=== PATIENT | female | born 1955 | race Caucasian/White ===

== ENCOUNTER 2017-09-29 09:37 | Emergency (ER) | payer BC ==
--- NOTE | 2017-09-29 10:06 | UC ---
Complaint Female HPI - HPI Summary HPI Summary: 62 year old female with cough . HAS BEEN COUGHING SINCE SATURDAY. SHE JUST DID NOT FEEL WELL AND WENT HOME FROM WORK. LAST NIGHT SHE WAS WHEEZING AND COULD NOT CATCH HER BREATH UNLESS SHE SAT UP. SHE SAID IT FELT LIKE ASTHMA ALTHOUGH SHE DOES NOT HAVE A HISTORY OF ASTHMA. [facility] IN THE BEGINNING OF AUGUST FOR 3 DAYS. AT THAT TIME THEY TESTED HER FOR FLU BUT IT WAS NEGATIVE AND SHE WAS TOLD THAT SHE HAD A URI. SHE DID GET BETTER AFTER HER VISIT IN THE HOSPITAL. SHE HAS HAD A TICKLY COUGH SINCE THEN. SHE IS CONCERNED THAT IT MAY BE A SIDE EFFECT OF ONE OF HER MEDICATIONS. SHE HAS BEEN ON LISINOPRIL/HCTZ FOR ABOUT 2 YEARS. THEY JUST STARTED HER ON AMIODARONE, ELIQUIS, AND METOPROLOL. SHE DID CALL HER CONSTRUCTION MANAGEMENT INSTRUCTOR DR BAIG IN [place] TO SEE IF IT WAS A MEDICATION SIDE EFFECT. SHE IS SUPPOSED TO CHECK BACK IN WITH HIM TOMORROW. BUT AFTER LAST NIGHT SHE FELT SO SICK THAT SHE IS WORRIED THAT SHE WILL GO BACK IN TO [facility] AND THE HOSPITAL. SHE ALSO IS UNSURE OF WHAT SHE CAN TAKE TO HELP WITH HER SYMPTOMS. SHE DOES NOT HAVE A FEVER. Cough worsened last night and change in cough she thinks. she feels her heart rate is normal and stable. no body aches. 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 Onset/Duration: Gradual Onset Timing: Constant Severity Initially: Mild Aggravating Factor(s): Coughing - History Of Current Complaint Stated Complaint: COUGH, WHEEZING - Allergies/Home Medications Allergies/Adverse Reactions: Allergies Allergy/AdvReac Type Severity Reaction Status Date / Time No Known Allergies Allergy Verified 09/29/17 10:17 Home Medications: Home Medications Amiodarone TAB* [Cordarone Tab*] 200 mg PO DAILY 09/29/17 [History Confirmed 11/13] Apixaban* [Eliquis*] 5 mg PO BID 09/29/17 [History Confirmed 09/29/17] Lisinopril/HCTZ 10/12.5(NF) [Zestoretic 10/12.5(NF)] 1 tab PO DAILY 09/29/17 [ History Confirmed 09/29/17] Metoprolol Tartrate TAB* [Lopressor TAB*] 25 mg PO BID 09/29/17 [History Confirmed 09/29/17] PMH/Surg Hx/FS Hx/Imm Hx Previously Healthy: Yes Cardiovascular History: Atrial Fibrillation - Family History Known Family History: Positive: None - Social History Occupation: Employed Full-time Lives: With Family Review of Systems Constitutional: Fatigue ENT: Nasal Discharge Respiratory: Cough Is Patient Immunocompromised?: No All Other Systems Reviewed And Are Negative: Yes Physical Exam Triage Information Reviewed: Yes Appearance: Well-Appearing, No Pain Distress, Well-Nourished Vital Signs: Initial Vital Signs Temp 99.8 F 09/29/17 10:02 Pulse 62 09/29/17 10:02 Resp 14 09/29/17 10:02 BP 123/77 09/29/17 10:02 Pulse Ox 97 09/29/17 10:02 Vital Signs Reviewed: Yes Eye Exam: Normal ENT Exam: Normal Dental Exam: Normal Neck exam: Normal Neck: Positive: 1 Respiratory Exam: Normal Respiratory: Positive: Chest non-tender, Decreased breath sounds - RLL, Wheezing - RLL mild Cardiovascular Exam: Normal Musculoskeletal Exam: Normal Neurological Exam: Normal Psychological Exam: Normal Skin Exam: Normal Re-Evaluation - Re-Evaluation First Eval Change: Improved - feels the med has reduced her chest tightness and no more cough and requesting med for home. xray neg. treat as viral at this time. she will go to PCP if not improved. Complaint Female Dx - Course Course Of Treatment: IMPRESSION: NO ACTIVE DISEASE per rads. she declined EKG. discussed abx but I dont think necessary and may interact with her meds and she desires to monitor at this time as well and avoid antibiotics and go to PCP if not better - Differential Dx/Diagnosis Provider Diagnoses: URI Discharge - Discharge Plan Condition: Good Disposition: HOME Prescriptions: Albuterol HFA INHALER* [Ventolin HFA Inhaler*] 1 - 2 puff INH Q6H PRN #1 mdi PRN Reason: Cough Patient Education Materials: Upper Respiratory Infection (ED) Referrals: [facility] [Primary Care Provider] - 2 Days Additional Instructions: Your xray was negative. It appears you have a viral infection. Please drink fluids and rest up . If your symptoms are not improving then please go to your PCP or any other health care facility
[2017-09-29 10:17] VITALS: BP 123/77
[2017-09-29] MEDS ORDERED: Albuterol 2.5 MG/3 ML NEB.SOL* (0.083%) INH ONE (11:16)
--- NOTE | 2017-09-29 11:29 | RAD ---
INDICATION: Cough COMPARISON: January 04, 2016 TECHNIQUE: PA and lateral dual-energy views were obtained. FINDINGS: Bones/Soft Tissues: There are no acute bony findings. Cardiomediastinal: The cardiomediastinal silhouette is normal. There is prior cardiothoracic surgery Lungs: There are no infiltrates. Pleura: There are no pleural effusions. Other: None IMPRESSION: NO ACTIVE DISEASE.
== END 2017-09-29 12:10 | disposition home or self-care (01) ==
LOC: UCCORT 09:37
DX: J06.9 Acute upper respiratory infection, unspecified (principal); I48.91 Unspecified atrial fibrillation
CPT/HCPCS: 71046; 99212; G0463

== ENCOUNTER 2018-09-23 09:05 | Emergency (ER) | payer BC ==
[2018-09-23 09:35] VITALS: BP 154/82
--- NOTE | 2018-09-23 09:53 | UC ---
Respiratory Complaint HPI - HPI Summary HPI Summary: cough x 2 days cough is dry , wheezing, sob chest tightness, no fever, no chills had could symptoms with nasal congestion / sinus pressure for 2 weeks - History of Current Complaint Chief Complaint: UCRespiratory Stated Complaint: COUGH,HEAD CONGESTION Time Seen by Provider: 09/23/18 09:44 Hx Obtained From: Patient Onset/Duration: Gradual Onset, Lasting Days - 2, Still Present Timing: Constant Severity Initially: Moderate Severity Currently: Moderate Pain Intensity: 0 Character: Cough: Nonproductive Aggravating Factors: Exertion, Deep Breaths Alleviating Factors: Nothing Associated Signs And Symptoms: Positive: Chills, Wheezing, URI, Nasal Congestion , Sinus Discomfort. Negative: Fever, Hemoptysis, Dizziness, Calf Pain, Calf Swelling, Edema, Hoarseness - Allergies/Home Medications Allergies/Adverse Reactions: Allergies Allergy/AdvReac Type Severity Reaction Status Date / Time No Known Allergies Allergy Verified 09/23/18 09:31 PMH/Surg Hx/FS Hx/Imm Hx Cardiovascular History: Hypertension, Atrial Fibrillation - Surgical History Surgical History: Yes Surgery Procedure, Year, and Place: 2016 - EXTERNAL ABLATION (EXPIR. PROCEDURE) - Family History Known Family History: Positive: Hypertension - Social History Alcohol Use: Rare Substance Use Type: None Smoking Status (MU): Never Smoked Tobacco Review of Systems All Other Systems Reviewed And Are Negative: Yes Constitutional: Positive: Chills Skin: Positive: Negative Eyes: Positive: Negative ENT: Positive: Nasal Discharge, Sinus Congestion Respiratory: Positive: Shortness Of Breath, Cough Cardiovascular: Positive: Negative Gastrointestinal: Positive: Negative Is Patient Immunocompromised?: No Physical Exam Triage Information Reviewed: Yes Appearance: Well-Appearing, No Pain Distress, Well-Nourished Vital Signs: Initial Vital Signs Temp 98.6 F 09/23/18 09:31 Pulse 90 09/23/18 09:31 Resp 16 09/23/18 09:31 BP 154/82 09/23/18 09:31 Pulse Ox 97 09/23/18 09:31 Vital Signs Reviewed: Yes Eye Exam: Normal Eyes: Positive: Conjunctiva Clear ENT: Positive: Normal ENT inspection, Hearing grossly normal, Pharynx normal Neck: Positive: Supple, Nontender, No Lymphadenopathy Respiratory: Positive: No respiratory distress, No accessory muscle use, Wheezing Cardiovascular: Positive: RRR, No Murmur, Pulses Normal Diagnostic Evaluation - Laboratory O2 Sat by Pulse Oximetry: 97 Diagnostic Studies Comment: chest xray : IMPRESSION: NO ACTIVE CARDIOPULMONARY DISEASE. Respiratory Course/Dx - Differential Dx/Diagnosis Provider Diagnosis: Bronchitis Discharge - Sign-Out/Discharge Documenting (check all that apply): Patient Departure All imaging exams completed and their final reports reviewed: Yes - Discharge Plan Condition: Stable Disposition: HOME Prescriptions: Albuterol HFA INHALER* [Ventolin HFA Inhaler*] 2 puff INH Q6H PRN #1 mdi PRN Reason: Wheezing predniSONE [Prednisone 20 MG TAB] 20 mg PO BID #10 tablet Patient Education Materials: Acute Bronchitis (ED) Referrals: [facility] [Primary Care Provider] - 7 Days - Billing Disposition and Condition Condition: STABLE Disposition: Home
== END 2018-09-23 10:30 | disposition home or self-care (01) ==
LOC: UCCORT 09:05
DX: J40 Bronchitis, not specified as acute or chronic (principal); R09.81 Nasal congestion; I10 Essential (primary) hypertension
CPT/HCPCS: 71046; 99212; G0463